=== PATIENT | male | born 1950 | race African-American/Black ===

== ENCOUNTER 2018-06-13 15:25 | Inpatient (IN) | payer MEDICARE ==
[~2018-06-13] VITALS: Ht 175.3 cm; Wt 83.7 kg
--- NOTE | 2018-06-13 15:54 | PHYS DOC ---
Past History Past Medical History: CAD, High Cholesterol, Hypertension Smoking: Cigarettes Adult General Chief Complaint Chief Complaint: CHEST PAIN HPI HPI Patient is a 68 year old male who brought in by EMS because of chest pain. Patient complaining of intermittent 3 episodes of substernal and right lower chest pain since yesterday as a pressure pain with radiation to his back and associated with nausea without shortness of breath, palpitation, dizziness, cough and congestion, fever and chills. Patient had history of chest pain and diagnosis of IN in March 2018 at [facility] and states that his pain is the same pain as his previous heart attack. Patient has history of hypertension and dyslipidemia and smoking and negative family history of coronary artery disease. Patient is chest pain-free right now and treated with 324 mg of aspirin given by EMS. Patient denies history of DVT and PE and is sent immobilization. Review of Systems Review of Systems Constitutional: Denies fever or chills [] Eyes: Denies change in visual acuity, redness, or eye pain [] HENT: Denies nasal congestion or sore throat [] Respiratory: Denies cough or shortness of breath [] Cardiovascular: No additional information not addressed in HPI [] GI: Denies abdominal pain, vomiting, bloody stools or diarrhea, reports nausea [] : Denies dysuria or hematuria [] Musculoskeletal: Denies back pain or joint pain [] Integument: Denies rash or skin lesions [] Neurologic: Denies headache, focal weakness or sensory changes [] Endocrine: Denies polyuria or polydipsia [] All other systems were reviewed and found to be within normal limits, except as documented in this note. Allergies Allergies Allergies Coded Allergies Type Severity Reaction Last Updated Verified aripiprazole Allergy Unknown 06/13/18 Yes Physical Exam Physical Exam Constitutional: Well developed, well nourished, no acute distress, non-toxic appearance. [] HENT: Normocephalic, atraumatic, oropharynx moist, no oral exudates, nose normal. [] Eyes: PERRLA, EOMI, conjunctiva normal, no discharge. [] Neck: Normal range of motion, no tenderness, supple, no stridor. [] Cardiovascular: Sinus bradycardia with regular rhythm, no murmur [] Lungs & Thorax: Bilateral breath sounds clear to auscultation [] Abdomen: Bowel sounds normal, soft, no tenderness, no masses, no pulsatile masses. [] Skin: Warm, dry, no erythema, no rash. [] Back: No tenderness, no CVA tenderness. [] Extremities: No tenderness, no cyanosis, no clubbing, ROM intact, no edema. [] Neurologic: Alert and oriented X 3, normal motor function, normal sensory function, no focal deficits noted. [] Psychologic: Affect normal, judgement normal, mood normal. [] EKG EKG KG interpreted by me. EKG at 1531 showed sinus bradycardia at rate of 48, no acute ST and T-wave abnormalities Radiology/Procedures Radiology/Procedures [address] [address] IMAGING REPORT Signed PATIENT: YANNICK SHARP ACCOUNT: [id number] : 1950 LOCATION: ER AGE: 68 SEX: M EXAM STATUS: REG ER ORD. PHYSICIAN: TYLER FOX MD REASON: chest pain PROCEDURE: PORTABLE CHEST 1V EXAM: Chest, single view. HISTORY: Chest pain. COMPARISON: None. FINDINGS: A frontal view of the chest is obtained. There is no infiltrate, pleural effusion or pneumothorax. The heart is normal in size. IMPRESSION: No acute pulmonary finding. Electronically signed by: Mag Singh MD (06/13/2018 4:37 PM) [place] [id number] DICTATED AND SIGNED BY: MAG SINGH MD DATE: 06/13/18 1637 CC: TYLER FOX MD; PCP,NO ~ [address] [address] IMAGING REPORT Signed PATIENT: YANNICK SHARP ACCOUNT: [id number] : 1950 LOCATION: ER AGE: 68 SEX: M EXAM STATUS: REG ER ORD. PHYSICIAN: TYLER FOX MD REASON: right upper quadrant pain PROCEDURE: ABDOMEN LTD LIMITED ABDOMINAL ULTRASOUND History: Right upper quadrant pain. Comparison: None. Procedure: Transabdominal ultrasound images are obtained. Findings: Visualized pancreas is unremarkable. Liver is increased in echogenicity. No focal hepatic masses are identified. Right hepatic lobe measures 15.9 cm in length. Gallbladder has an unremarkable appearance. Common bile duct measures normally at 2 mm in diameter. Right kidney measures 10.0 cm in length. There is no evidence of stone or hydronephrosis. Visualized IVC demonstrates normal caliber. Impression: 1. Echogenic liver, compatible with fatty liver disease. 2. Otherwise, unremarkable right upper quadrant abdominal ultrasound. Electronically signed by: Dayton eMnon MD (06/13/2018 5:42 PM) [facility] DICTATED AND SIGNED BY: DAYTON MENON MD DATE: 06/13/18 174 CC: TYLER FOX MD; PCP,NO ~ Course & Med Decision Making Course & Med Decision Making Pertinent Labs and Imaging studies reviewed. (See chart for details) Evaluation of patient in ER showed 5-year-old male patient with multiple cardiac risk factor with complaining of intermittent episodes of chest pain since yesterday. Patient had unremarkable physical exam and labs and EKG except for sinus bradycardia. Because of multiple cardiac risk factor plan to admit patient for more cardiac evaluation. Dragon Disclaimer Dragon Disclaimer This electronic medical record was generated, in whole or in part, using a voice recognition dictation system. Departure Departure: Impression: Primary Impression: Acute chest pain Additional Impressions: Tobacco abuse Tobacco abuse counseling Disposition: ADMITTED INPATIENT (at 1741) Admitting Physician: Patrizia Salazar (accepted admission at 1740) Condition: STABLE Problem Qualifiers TYLER FOX MD Jun 13, 2018 15:54
[2018-06-13 15:59] LABS: BASO % 1 % (0-3); EOS # 0.2 x10^3/uL (0.0-0.7); EOS % 3 % (0-3); HEMATOCRIT 41.2 % (39.0-53.0); HEMOGLOBIN 13.9 g/dL (13.0-17.5); LYMPH % 39 % (24-48); MEAN CORPUSCULAR HEMOGLOBIN 32 pg (25-35); MEAN CORPUSCULAR HGB CONC 34 g/dL (31-37); MEAN CORPUSCULAR VOLUME 95 fL (79-100); MONO # 0.6 x10^3/uL (0.0-1.1); MONO % 12 % (0-9); NEUT # 2.3 x10^3uL (1.8-7.7); NEUT % 45 % (31-73); PLATELET COUNT 236 x10^3/uL (140-400); RED BLOOD COUNT 4.36 x10^6/uL (4.30-5.70); RED CELL DISTRIBUTION WIDTH 13.4 % (11.5-14.5); WHITE BLOOD COUNT 5.1 x10^3/uL (4.0-11.0)
[2018-06-13 16:21] LABS: ALBUMIN 3.7 g/dL (3.4-5.0); CALCIUM 9.5 mg/dL (8.5-10.1); CREATININE 1.1 mg/dL (0.7-1.3); GFR 66.2; TOTAL BILIRUBIN 0.4 mg/dL (0.2-1.0); TOTAL PROTEIN 7.4 g/dL (6.4-8.2)
[2018-06-13 16:38] LABS: POTASSIUM 4.4 mmol/L (3.5-5.1)
--- NOTE | 2018-06-13 16:41 | RAD ---
EXAM: Chest, single view. HISTORY: Chest pain. COMPARISON: None. FINDINGS: A frontal view of the chest is obtained. There is no infiltrate, pleural effusion or pneumothorax. The heart is normal in size. IMPRESSION: No acute pulmonary finding. Electronically signed by: Mag Barbour MD (06/13/2018 4:37 PM) [place] [id number]
--- NOTE | 2018-06-13 17:46 | RAD ---
LIMITED ABDOMINAL ULTRASOUND History: Right upper quadrant pain. Comparison: None. Procedure: Transabdominal ultrasound images are obtained. Findings: Visualized pancreas is unremarkable. Liver is increased in echogenicity. No focal hepatic masses are identified. Right hepatic lobe measures 15.9 cm in length. Gallbladder has an unremarkable appearance. Common bile duct measures normally at 2 mm in diameter. Right kidney measures 10.0 cm in length. There is no evidence of stone or hydronephrosis. Visualized IVC demonstrates normal caliber. Impression: 1. Echogenic liver, compatible with fatty liver disease. 2. Otherwise, unremarkable right upper quadrant abdominal ultrasound. Electronically signed by: Dayton Patton MD (06/13/2018 5:42 PM) [facility]
--- NOTE | 2018-06-13 18:33 | EKG ---
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
[2018-06-13 18:36] VITALS: BP 164/82
[2018-06-13] MEDS ORDERED: TEMA30CA PO (20:51)
[2018-06-13] MEDS ORDERED: AMLO5TAB7 PO (20:51)
[2018-06-13] MEDS ORDERED: GABA-586 PO (20:51)
[2018-06-13] MEDS ORDERED: OMEP20CA9 PO (20:51)
[2018-06-13] MEDS ORDERED: ACET500T68 PO (20:51)
[2018-06-13] MEDS ORDERED: MULT1TAB52 PO (20:51)
[2018-06-13] MEDS ORDERED: CYCL-331 PO (20:51)
[2018-06-13] MEDS ORDERED: SILD100T PO (20:51)
[2018-06-13] MEDS ORDERED: POTA20TA4 PO (20:51)
[2018-06-13] MEDS ORDERED: CYCLOBENZAPRINE 10 MG TABLET. PO SCH (21:00)
[2018-06-13] MEDS ORDERED: TEMAZEPAM 15 MG CAPSULE PO SCH (21:00)
[2018-06-13] MEDS ORDERED: CYCLOBENZAPRINE 10 MG TABLET. PO PRN (21:15)
[2018-06-13] MEDS ORDERED: ACETAMINOPHEN 500 MG TABLET PO PRN (21:15)
[2018-06-13] MEDS: GABAPENTIN 300 MG CAPSULE. PO SCH (21:18)
[2018-06-13] MEDS ORDERED: NICOTINE 21MG PATCH. TD PRN (22:00)
[2018-06-13 22:40] VITALS: BP 132/84
[2018-06-14 05:50] VITALS: BP 142/83
[2018-06-14 06:39] LABS: CALCIUM 9.7 mg/dL (8.5-10.1); CREATININE 0.7 mg/dL (0.7-1.3); GFR 134.9
[2018-06-14 06:43] LABS: POTASSIUM 4.5 mmol/L (3.5-5.1)
[2018-06-14 06:51] LABS: BASO % 1 % (0-3); EOS # 0.1 x10^3/uL (0.0-0.7); EOS % 3 % (0-3); HEMATOCRIT 44.9 % (39.0-53.0); LYMPH # 1.8 x10^3/uL (1.0-4.8); LYMPH % 41 % (24-48); MEAN CORPUSCULAR HEMOGLOBIN 32 pg (25-35); MEAN CORPUSCULAR HGB CONC 33 g/dL (31-37); MEAN CORPUSCULAR VOLUME 97 fL (79-100); MONO # 0.5 x10^3/uL (0.0-1.1); MONO % 11 % (0-9); NEUT # 1.9 x10^3uL (1.8-7.7); NEUT % 44 % (31-73); PLATELET COUNT 186 x10^3/uL (140-400); RED BLOOD COUNT 4.65 x10^6/uL (4.30-5.70); RED CELL DISTRIBUTION WIDTH 13.8 % (11.5-14.5); WHITE BLOOD COUNT 4.4 x10^3/uL (4.0-11.0)
[2018-06-14] MEDS ORDERED: PANTOPRAZOLE 40 MG TABLET. PO SCH (07:30)
[2018-06-14] MEDS: GABAPENTIN 300 MG CAPSULE. PO SCH ×2 (08:24→14:34)
--- NOTE | 2018-06-14 08:48 | PDOC2 ---
CONSULT Date of Admission DATE: 06/14/18 TIME: 08:45 Reason for Consult: cp Problem List Problems Medical Problems: (1) Acute chest pain Status: Acute (2) Tobacco abuse Status: Acute (3) Tobacco abuse counseling Status: Acute History of Present Illness chest pressure mid sternal to epigastric with radiation to right costal margin. increased with supine position and exertion. lasting approx 30 minutes each episode. off and on yesterday. + associated dyspnea, no nausea/vomiting or diaphoresis. Occasional palpitations. no congestive symptoms. + discomfort bilateral legs with ambulation. able to walk about 150 yards before needing to stop due to discomfort. left >right and resolving after about 10 minutes. No edema. syncopal episode in March for which he was admitted at [facility]. had been grocery shopping, walking up to house when he had sudden weakness from waist down. sat down and next memory was of EMS. had carotid sonos and possible echo at [facility], was found to be in renal failure and stopped nsaids, received fluids. No other acute abn to his knowledge. Thought he had heart attack but denies any stress testing, cardiac cath etc. Cardiovascular: HTN, syncope Pulmonary: COPD CENTRAL NERVOUS SYSTEM: Periperal neuropathy GI: GERD Hepatobiliary: Other (prior history of liver biopsy reportedly normal) Psych: Anxiety Musculoskeletal: low back pain (Chronic), Osteoarthritis, Other (disc disease lumbar and cervical) Renal/: Acute renal failure Past Surgical History marlin left lower extremity, no other significant surgeries. Family History alcoholism, mother from cerebral bleed, father causes unknown. 1 brother with liver problems secondary to ETOH, 1 sister at young age with polio, 3 healthy brothers. Social History + smoker, 1/2 ppd, smoking for 50 yrs, occasional marijuana, no other illicit drugs, no ETOH Current Medications Current Medications Gabapentin (Neurontin) 300 mg TID PO Last administered on 06/14/18at 08:24; Start 06/13/18 at 21:00 Potassium Chloride (Klor-Con) 20 meq DAILY PO Last administered on 06/14/18at 08:24; Start 06/14/18 at 09:00 Acetaminophen (Tylenol) 1,000 mg PRN TID PRN PO PAIN / TEMP; Start 06/13/18 at 21:15 Amlodipine Besylate (Norvasc) 5 mg DAILY PO Last administered on 06/14/18at 08: 25; Start 06/14/18 at 09:00 Multivitamins/ Calcium (Thera-M Plus) 1 tab DAILY PO Last administered on 06/14at 08:25; Start 06/14/18 at 09:00 Pantoprazole Sodium (Protonix) 40 mg DAILYAC PO Last administered on at 08:24; Start 06/14/18 at 07:30 Temazepam (Restoril) 30 mg QHS PO Last administered on 06/13/18at 21:18; Start 06/13/18 at 21:00 Cyclobenzaprine HCl (Flexeril) 10 mg TID PO ; Start 06/13/18 at 21:00; Stop at 21:14; Status DC Cyclobenzaprine HCl (Flexeril) 5 mg PRN TID PRN PO BACK PAIN; Start 06/13/18 at 21:15 Nicotine (Nicoderm Cq 21mg) 1 patch PRN DAILY PRN TD SMOKING CESSATION; Start 06/13/18 at 22:00 Active Scripts Active Reported Omeprazole 20 Mg Capsule.dr 20 Mg PO DAILY LAST DOSE GIVEN: DATE: TIME: NEXT DOSE DUE: DATE: TIME: Gabapentin 300 Mg Capsule 300 Mg PO TID LAST DOSE GIVEN: DATE: TIME: NEXT DOSE DUE: DATE: TIME: Acetaminophen 500 Mg Tablet 1,000 Mg PO PRN TID PRN LAST DOSE GIVEN: DATE: TIME: NEXT DOSE DUE: DATE: TIME: Temazepam 30 Mg Capsule 30 Mg PO QHS LAST DOSE GIVEN: DATE: TIME: NEXT DOSE DUE: DATE: TIME: Viagra (Sildenafil Citrate) 100 Mg Tablet 100 Mg PO PRN DAILY PRN LAST DOSE GIVEN: DATE: TIME: NEXT DOSE DUE: DATE: TIME: Klor-Con M20 (Potassium Chloride) 20 Meq Tab.er.prt 20 Meq PO DAILY LAST DOSE GIVEN: DATE: TIME: NEXT DOSE DUE: DATE: TIME: Multivitamins (Multivitamin) 1 Each Tablet 1 Each PO DAILY LAST DOSE GIVEN: DATE: TIME: NEXT DOSE DUE: DATE: TIME: Cyclobenzaprine Hcl 10 Mg Tablet 5 Mg PO TID LAST DOSE GIVEN: DATE: TIME: NEXT DOSE DUE: DATE: TIME: Amlodipine Besylate 5 Mg Tablet 5 Mg PO DAILY LAST DOSE GIVEN: DATE: TIME: NEXT DOSE DUE: DATE: TIME: Allergies: Coded Allergies: aripiprazole (Verified Allergy, Intermediate, 06/14/18) olanzapine (Verified Allergy, Intermediate, 06/14/18) Review of System as per HPI or negative General: Alert, Oriented X3, Cooperative, No acute distress HEENT: Atraumatic, EOMI, Mucous membr. moist/pink Lungs: Clear to auscultation Heart: Normal S1, Normal S2, Other (no gallops, clicks or rubs) Extremities: No cyanosis, No edema, Other (1+ DP pulses) Neuro: Normal speech, Strength at 5/5 X4 ext Psych/Mental Status: Mental status NL, Mood NL VITALS Vital Signs Date Time Temp Pulse Resp B/P (MAP) Pulse Ox O2 Delivery O2 Flow Rate FiO2 06/14/18 08:25 56 142/83 06/14/18 07:44 Room Air 06/14/18 05:50 97.5 18 96 Labs Laboratory Tests Test 06/13/18 15:40 06/13/18 21:48 06/14/18 00:45 06/14/18 05:47 White Blood Count 5.1 x10^3/uL (4.0-11.0) 4.4 x10^3/uL (4.0-11.0) Red Blood Count 4.36 x10^6/uL (4.30-5.70) 4.65 x10^6/uL (4.30-5.70) Hemoglobin 13.9 g/dL (13.0-17.5) 15.0 g/dL (13.0-17.5) Hematocrit 41.2 % (39.0-53.0) 44.9 % (39.0-53.0) Mean Corpuscular Volume 95 fL (79-100) 97 fL (79-100) Mean Corpuscular Hemoglobin 32 pg (25-35) 32 pg (25-35) Mean Corpuscular Hemoglobin Concent 34 g/dL (31-37) 33 g/dL (31-37) Red Cell Distribution Width 13.4 % (11.5-14.5) 13.8 % (11.5-14.5) Platelet Count 236 x10^3/uL (140-400) 186 x10^3/uL (140-400) Neutrophils (%) (Auto) 45 % (31-73) 44 % (31-73) Lymphocytes (%) (Auto) 39 % (24-48) 41 % (24-48) Monocytes (%) (Auto) 12 % (0-9) 11 % (0-9) Eosinophils (%) (Auto) 3 % (0-3) 3 % (0-3) Basophils (%) (Auto) 1 % (0-3) 1 % (0-3) Neutrophils # (Auto) 2.3 x10^3uL (1.8-7.7) 1.9 x10^3uL (1.8-7.7) Lymphocytes # (Auto) 2.0 x10^3/uL (1.0-4.8) 1.8 x10^3/uL (1.0-4.8) Monocytes # (Auto) 0.6 x10^3/uL (0.0-1.1) 0.5 x10^3/uL (0.0-1.1) Eosinophils # (Auto) 0.2 x10^3/uL (0.0-0.7) 0.1 x10^3/uL (0.0-0.7) Basophils # (Auto) 0.0 x10^3/uL (0.0-0.2) 0.0 x10^3/uL (0.0-0.2) Prothrombin Time 10.4 SEC (9.4-11.4) Prothromb Time International Ratio 1.0 (0.9-1.1) Activated Partial Thromboplast Time 22 SEC (23-33) Sodium Level 140 mmol/L (136-145) 142 mmol/L (136-145) Potassium Level 4.4 mmol/L (3.5-5.1) 4.5 mmol/L (3.5-5.1) Chloride Level 105 mmol/L (98-107) 106 mmol/L (98-107) Carbon Dioxide Level 26 mmol/L (21-32) 24 mmol/L (21-32) Anion Gap 9 (6-14) 12 (6-14) Blood Urea Nitrogen 10 mg/dL (8-26) 10 mg/dL (8-26) Creatinine 1.1 mg/dL (0.7-1.3) 0.7 mg/dL (0.7-1.3) Estimated GFR (Cockcroft-Gault) 66.2 134.9 BUN/Creatinine Ratio 9 (6-20) Glucose Level 94 mg/dL (70-99) 94 mg/dL (70-99) Calcium Level 9.5 mg/dL (8.5-10.1) 9.7 mg/dL (8.5-10.1) Magnesium Level 2.0 mg/dL (1.8-2.4) Total Bilirubin 0.4 mg/dL (0.2-1.0) Aspartate Amino Transf (AST/SGOT) 28 U/L (15-37) Alanine Aminotransferase (ALT/SGPT) 28 U/L (16-63) Alkaline Phosphatase 66 U/L (46-116) Creatine Kinase 214 U/L (39-308) Troponin I Quantitative < 0.017 ng/mL (0-0.055) < 0.017 ng/mL (0-0.055) < 0.017 ng/mL (0-0.055) BO-Yiu-C-Type Natriuretic Peptide 249 pg/mL (0-124) Total Protein 7.4 g/dL (6.4-8.2) Albumin 3.7 g/dL (3.4-5.0) Albumin/Globulin Ratio 1.0 (1.0-1.7) Lipase 245 U/L (73-393) Images EKG - sinus bradycardia without acute ischemic changes CXR - no acute abnormality abdominal sonogram - Impression: 1. Echogenic liver, compatible with fatty liver disease. 2. Otherwise, unremarkable right upper quadrant abdominal ultrasound. Assessment/Plan 1. chest pain - AR ruled out. check echo unless recent echo at [facility]). Aspirin daily. check lipids. No beta blockers secondary to sinus bradycardia. Suggest outpatient MPI if no significant abn and no recurrent CP with ambulation. 2. hypertension - resume amlodipine, add low dose lisinopril if orthostatics negative. discontinue potassium. 3. claudication - arterial duplex, could be completed outpatient. 4. bradycardia with history of prior syncope - outpatient MCT 5. GERD - continue PPI 6. tobaccoism - cessation encouraged 7. unk lipid status - check lipids and start statin if indicated. 8. recent history of acute renal dysfunction in the setting of probable dehydration and chronic NSAID use. Bun / Cr currently normal. Repeat labs after 1 week with addition of lisinopril. MERRILL ZAMORA APRN Jun 14, 2018 08:48
[2018-06-14] MEDS ORDERED: ASPIRIN ENTERIC COATED 81 MG TABLET.DR. PO SCH (09:00)
[2018-06-14] MEDS ORDERED: MULTIVITAMIN with MINERAL TABLET. PO SCH (09:00)
[2018-06-14] MEDS ORDERED: LISINOPRIL 5 MG TABLET. PO SCH (09:00)
[2018-06-14] MEDS ORDERED: amLODIPine BESYLATE 5 MG TABLET PO SCH (09:00)
[2018-06-14] MEDS ORDERED: POTASSIUM CHLORIDE 20 MEQ TABLET.ER. PO SCH (09:00)
[2018-06-14 09:45] VITALS: BP 146/78
[2018-06-14 09:46] VITALS: BP 152/77
[2018-06-14 09:47] VITALS: BP 145/76
[2018-06-14 10:46] VITALS: BP 132/79
--- NOTE | 2018-06-14 13:40 | HP ---
ADMIT DATE: 06/13/2018 HISTORY OF PRESENT ILLNESS: The patient is a 68-year-old -[place] male patient who came to the Emergency Room, complaining of chest pain. Pain was mostly in the right lower side of the chest anteriorly, but chest heaviness was midsternal that started while he was sitting in his chair. He denied any nausea or vomiting. Denied any diaphoresis or shortness of breath. Pain lasted for about 30-40 minutes and resolved on its own and came back and was brought by ambulance to the Emergency Room of [facility]. He was investigated in the Emergency Room. His first set of cardiac enzyme was less than 0.017. He was admitted to do 2 more sets of cardiac enzymes and consult the Cardiology team. PAST MEDICAL HISTORY: Significant for hypertension, hepatitis C, treated in 2007 with antiviral medication. He is known to have an episode of acute kidney injury for which he was admitted to the [facility] on 05/03/2018. He is known to have chronic back pain and right lumbar radiculopathy. He has chronic obstructive pulmonary disease. PAST SURGICAL HISTORY: Significant for esophagogastroduodenoscopy, colonoscopy, liver biopsy, and his left tibia and fibular fracture treated with open reduction and internal fixation. ALLERGIES: HE IS ALLERGIC TO ABILIFY AND OLANZAPINE. MEDICATIONS: He is currently on following medications: He is on Flexeril 5 mg 3 times a day, sildenafil 100 mg daily as needed. He is on amlodipine besylate 5 mg once a day, acetaminophen 1000 mg 3 times a day as needed, gabapentin 300 mg 3 times a day, temazepam 30 mg at bedtime, potassium chloride 20 mEq daily, omeprazole 20 mg daily and multivitamin 1 tablet once a day. FAMILY HISTORY: He has 4 brothers and his sister when she was very young. He does not know of his father. His mother at age of 46 because of cerebral hemorrhage. SOCIAL HISTORY: He is , has 4 daughters and 2 sons. He smoked for almost 56 years. He smokes now. He used to smoke one half pack a day, now he smokes about half a pack a day. He does not drink alcohol, but he smokes weed, almost on a daily basis. Does not use any drugs. He was in the [employer] and has held multiple jobs. The last one was in [employer] in [employer] for almost 10 years, according to him. Currently retired. REVIEW OF SYSTEMS: The patient denied any blurring of vision. He has cataracts, but no glaucoma or macular degeneration. Denied any earache, tinnitus or sensorineural deafness. Denied nosebleeds, stuffy nose or postnasal drip. Denied any sore throat, sore tongue, toothache, hoarseness of voice or difficulty swallowing. Denied any nausea, vomiting, diarrhea or constipation. Denied any hematemesis, melena or hematochezia. Denied any dysuria, frequency or hematuria. By the time I saw him, he has chest pain free. Denied any shortness of breath, orthopnea, paroxysmal nocturnal dyspnea. Denied any cough, phlegm or hemoptysis. Denied any chills, rigors, or fever. Denied any dizziness, lightheadedness, or vertigo. PHYSICAL EXAMINATION: GENERAL: On arrival to the Emergency Room, he looked well and was clearly in no apparent respiratory distress, slightly pale, but no jaundice, cyanosis, lymphadenopathy or thyromegaly. No jugular venous distension. No lower limb edema. VITAL SIGNS: His heart rate was 59, blood pressure was 167/83, his temperature was 98.5, respiratory rate was 16 and oxygen saturation was 100% on room air. HEENT: Showed normocephalic, atraumatic. NECK: Supple. HEART: Showed normal first and second heart sounds. No gallop, rub or murmur. CHEST: Clear to auscultation. No crepitation or rhonchi. ABDOMEN: Distended, soft, nontender. No guarding or rigidity. No organomegaly. Hernial orifice intact. Bowel sounds normal. NEUROLOGIC: He was awake, alert, responding appropriately. Cranial nerves intact. EXTREMITIES: She moves extremities without difficulty, ambulates without assistance or assistive devices. LABORATORY DATA: On arrival to the Emergency Room, he has lab work done which showed a white cell count of 5100, hemoglobin 13.9, hematocrit 41, MCV 95, and platelet count of 236,000. His chemistry showed a serum sodium of 140, potassium 4.4, chloride was 105, bicarbonate was 26, anion gap of 9, BUN 10, creatinine 1.1, estimated GFR was 66 mL per minute. His glucose was 94, calcium was 9.5, magnesium 2. Total bilirubin, AST, ALT, alkaline phosphatase were normal. His CK was 214. First set of cardiac enzymes showed troponin to be less than 0.017. Total protein was 7.4, albumin 3.7 and lipase was ____. His prothrombin time was 10.4, INR of 1, aPTT was 22. We will do 2 more sets of cardiac enzyme, consult the Cardiology team and decide on further management accordingly. MALINA MALAGON MD DR: FOREST/elba JOB#: [id number] / [id number]
[2018-06-14 14:42] VITALS: BP 132/78
--- NOTE | 2018-06-15 02:18 | DS ---
DATE OF DISCHARGE: 06/14/2018 HOSPITAL COURSE: Mr. Couch is a 68-year-old -[place] male patient who came to the Emergency Room complaining of chest pain, was mostly in the right lower chest anteriorly with a heaviness mostly in the midline. This lasted about 30-40 minutes. It was not associated with any nausea, vomiting, diaphoresis, or shortness of breath. It subsided spontaneously and recurred; however, it has completely resolved by the time he arrived to the Emergency Room. He was extensively investigated. He has had 3 sets of cardiac enzymes and all of them showed troponin to be less than 0.017. His EKG showed that he was in sinus bradycardia at the rate of [address]-T changes. He was seen by the patient financial specialist, recommended doing an echocardiogram. We did receive record from OR and apparently was seen there for a syncopal episode and acute kidney injury, which has resolved. Had had an echocardiogram done at that time, which showed that his ejection fraction was 55%-60% and unfortunately, the echocardiogram could not be done today and therefore, the patient was discharged to be seen as an outpatient. PHYSICAL EXAMINATION: GENERAL: When I saw him this afternoon, he looked well and was clearly in no apparent respiratory distress. There is no pallor, jaundice, cyanosis, or thyromegaly. No jugular venous distension. No lower limb edema. VITAL SIGNS: Her heart rate was 54, blood pressure 132/78, temperature was 97.2, respiratory rate was 20, and oxygen saturation was 95%. HEAD, EYES, EARS, NOSE AND THROAT: Normocephalic, atraumatic. NECK: Supple. HEART: Showed normal first and second heart sounds with no gallop, rub, or murmur. CHEST: Clear to auscultation. No crepitation or rhonchi. ABDOMEN: Distended, soft, nontender. No guarding or rigidity. No organomegaly. Hernial orifice intact. Bowel sounds normal. NEUROLOGIC: He is awake, alert, responding appropriately. All cranial nerves intact. EXTREMITIES: He moves extremities without difficulty, ambulates without assistance or assistive devices. LABORATORY DATA: Showed a white cell count of 4400, hemoglobin 15, hematocrit 45, MCV 97 and platelet count of 186,000. Serum sodium was 142, potassium 4.5, chloride 106, bicarbonate 24, anion gap of 12, BUN 10, creatinine 0.7, estimated GFR 135 mL per minute. His glucose was 94, calcium was 9.7. He said he did have 3 sets of cardiac enzymes, all showed the troponin to be less than 0.017. His chemistry showed a serum sodium 142, potassium 4.5, chloride 106, bicarbonate 24, anion gap of 12, BUN 10, creatinine 0.7. DISCHARGE MEDICATIONS: He was discharged home to continue on following medication. He was discharged on Tylenol 1000 mg 3 times a day, amlodipine 5 mg daily, cyclobenzaprine 5 mg 3 times a day, gabapentin 300 mg 3 times a day, multivitamin 1 tablet once a day, omeprazole 20 mg once a day, potassium chloride 20 mEq once a day, sildenafil citrate 100 mg daily, and temazepam 30 mg p.o. at bedtime. FINAL DISCHARGE DIAGNOSES: Chest pain, myocardial infarction ruled out, hypertension, hepatitis C treated in 2007 with antiviral medication, an episode of acute kidney injury treated at the [facility] and resolved, chronic back pain, chronic obstructive pulmonary disease. MALINA MALAGON MD DR: FOREST/elba JOB#: [id number] / [id number]
[2018-06-15] MEDS ORDERED: ASPIRIN ENTERIC COATED 81 MG TABLET.DR. PO SCH (08:00)
== END 2018-06-14 17:15 | disposition home or self-care (01) | DRG 313 ==
LOC: ER 15:25 → 1 SOUTH 17:41
PROVIDERS: ADMIT Internal Medicine; ATTEND Internal Medicine
DX: R07.9 Chest pain, unspecified (principal); E78.00 Pure hypercholesterolemia, unspecified; F17.210 Nicotine dependence, cigarettes, uncomplicated; F41.9 Anxiety disorder, unspecified; G62.9 Polyneuropathy, unspecified; G89.29 Other chronic pain; I10 Essential (primary) hypertension; I25.10 Atherosclerotic heart disease of native coronary artery without angina pectoris; I73.9 Peripheral vascular disease, unspecified; J44.9 Chronic obstructive pulmonary disease, unspecified; K21.9 Gastro-esophageal reflux disease without esophagitis; K76.0 Fatty (change of) liver, not elsewhere classified; M54.5 Low back pain; E78.5 Hyperlipidemia, unspecified; M19.90 Unspecified osteoarthritis, unspecified site; I25.2 Old myocardial infarction; Z79.1 Long term (current) use of non-steroidal anti-inflammatories (NSAID); Z79.82 Long term (current) use of aspirin; Z88.8 Allergy status to other drugs, medicaments and biological substances; Z71.6 Tobacco abuse counseling; Z79.899 Other long term (current) drug therapy
CPT/HCPCS: 36415; 71045; 76705; 80048; 80053; 80061; 82550; 83690; 83735; 83880; 84484; 85025; 85610; 85730; 93005; 99406; 99285-25

== ENCOUNTER → 2019-06-05 | Outpatient (CLI) | payer MEDICARE ==
[~2019-06-05] MED LIST: ACET500T68 PO; AMLO5TAB10 PO; CYCL-331 PO; GABA-586 PO; MULT1TAB52 PO; OMEP20CA10 PO; POTA20TA4 PO; SILD100T PO; TEMA30CA PO
--- NOTE | 2019-06-05 16:41 | RAD ---
CT CHEST WO CONTRAST Indication: Pulmonary nodule. Acute chest pain. Exposure: One or more of the following individualized dose reduction techniques were utilized for this examination: 1. Automated exposure control 2. Adjustment of the mA and/or kV according to patient size 3. Use of iterative reconstruction technique. Technique: Standard imaging without intravenous contrast. Comparison: No prior imaging studies of the chest at this institution. FINDINGS: Ascending aorta is ectatic, measuring 3.7 cm. No gross aortic dissection. Mild aortic calcification. Vascular evaluation otherwise limited without intravenous contrast. Small axillary lymph nodes are identified bilaterally. These measure up to 9 mm in short axis on the left and 10 mm short axis on the right. Small mediastinal lymph nodes are identified, largest pretracheal node measures 6 mm. Difficult to exclude hilar lymph node enlargement without contrast. Partially visualized thyroid appears symmetric. Coronary artery calcification. No pericardial effusion. No pleural effusion. Noncalcified pulmonary nodule in the posterior left upper lobe measuring 8 mm diameter. Series 4, image 90. Posterior right upper lobe nodule series 4, image 104, measures 6 mm. Multiple additional smaller nodules are seen in both lungs. Minimal reticular opacity in the right upper lobe may represent some focal scarring or atelectasis. Linear opacities in lung bases compatible with mild fibrosis or atelectasis. No consolidating airspace infiltrate. Trachea and mainstem bronchi Severe degenerative spondylosis is identified of the spine no aggressive bone destruction is seen. Scans to the upper abdomen are limited due to technique but no obvious acute abnormality. IMPRESSION: 1. Multiple bilateral pulmonary nodules, largest measures 8 mm diameter. As per revised Fleischner guidelines, recommend follow-up CT chest in 3-6 months. 2. Ectasia of the ascending aorta. 3. Borderline enlarged mediastinal and bilateral axillary lymph nodes, indeterminate etiology. Electronically signed by: Dayton Spencer MD (06/05/2019 4:38 PM) [facility]
== END | disposition home or self-care (01) ==
LOC: CT 12:37
PROVIDERS: ATTEND Family Medicine
DX: R91.8 Other nonspecific abnormal finding of lung field (principal); I77.819 Aortic ectasia, unspecified site; R59.0 Localized enlarged lymph nodes
CPT/HCPCS: 71250